=== PATIENT | female | born 1945 | race Caucasian/White ===

== ENCOUNTER 2016-11-12 07:39 | Day surgery (SDC) | payer BC, OTHER ==
[2016-11-12 08:31] VITALS: BMI 28.3
[2016-11-12] MEDS ORDERED: PROPOFOL 20 ML ONE ×3 (09:06)
[2016-11-12] MEDS ORDERED: LIDOCAINE HCL/PF 2% SDV 5ML VIAL ONE (09:06)
[2016-11-12 09:33] VITALS: TEMP 97.5
[2016-11-12 10:27] VITALS: BP 133/68; PULSE 56
--- NOTE | 2016-11-15 11:26 | PATH ---
Surgical Pathology Report Patient Name: DANIEL PACHECO [facility]. Rec. #: [id number] /Age/Gender: 1945 (Age: 71) / F Account: [id number] Location: U-ENDOSCOPY Taken: 11/12/2016 Received: 11/12/2016 Reported: 11/15/2016 Physicians: Shelly Pabon M.D. Specimen(s) Received A: BX CECUM B: BX ILEUM Clinical History History of microscopic colitis, abdominal pain, change in bowel habits Normal colon, history of microscopic colitis Final Diagnosis A. COLON, CECUM, BIOPSY: COLONIC MUCOSA WITH INCREASED LAMINA PROPRIA LYMPHOPLASMACYTIC INFILTRATE AND INCREASED INTRAEPITHELIAL LYMPHOCYTES (SEE COMMENT). NO EVIDENCE OF ARCHITECTURAL DISTORTION, GRANULOMATA OR DYSPLASIA. B. ILEUM, BIOPSY: ILEAL MUCOSA WITH INCREASED INTRAEPITHELIAL LYMPHOCYTES (SEE COMMENT). NO EVIDENCE OF GRANULOMATA OR DYSPLASIA. Comment: History of microscopic colitis is noted. The histologic findings are compatible with lymphocytic colitis in proper clinical settings. Electronically Signed José Elise M.D. Gross Description A. Received in formalin, labeled "biopsy cecum" are 4 kuhn, irregular portions of soft tissue averaging 0.4 cm in greatest dimension. The specimens are submitted in toto in one cassette. B. Received in formalin, labeled "biopsy ileum" is a kuhn, irregular portion of soft tissue measuring 0.7 cm in greatest dimension. The specimen is submitted in toto in one cassette. 11/12/201611/12/2016
== END 2016-11-12 10:27 | disposition home or self-care (01) ==
LOC: JASU-ENDO 07:39
PROVIDERS: ATTEND Internal Medicine Gastroenterology
PROC: 0DBB8ZX Excision of Ileum, Via Natural or Artificial Opening Endoscopic, Diagnostic (ICD-10-PCS; 2016-11-12)
PROC: 0DBH8ZX Excision of Cecum, Via Natural or Artificial Opening Endoscopic, Diagnostic (ICD-10-PCS; principal; 2016-11-12 09:00)
DX: Z12.11 Encounter for screening for malignant neoplasm of colon (principal); D17.5 Benign lipomatous neoplasm of intra-abdominal organs; K63.89 Other specified diseases of intestine
CPT/HCPCS: 88305-TC

== ENCOUNTER 2017-11-11 04:56 | Day surgery (SDC) | payer OTHER ==
[2017-11-10 12:07] VITALS: BMI 27.4
[2017-11-11] MEDS ORDERED: PROPOFOL 20 ML ONE (12:40)
[2017-11-11] MEDS ORDERED: MIDAZOLAM HCL 2 MG/2 ML SINGLE DOSE VIAL ONE (12:40)
[2017-11-11] MEDS ORDERED: ONDANSETRON 4 MG/2 ML VIAL IVPUSH PRN (13:22)
[2017-11-11] MEDS ORDERED: oxyCODONE HCL 5 MG TABLET PO PRN (13:22)
[2017-11-11] MEDS ORDERED: DEXAMETHASONE SOD PHOSPHATE 4 MG/1 ML VIAL ONE (13:22)
[2017-11-11] MEDS ORDERED: LACTATED RINGERS SOLUTION 1,000 ML IV SCH (13:30)
[2017-11-11] MEDS ORDERED: ceFAZolin SODIUM 1 GM VIAL IVPB ONE (13:31)
[2017-11-11] MEDS ORDERED: ACETAMINOPHEN 325 MG TABLET (FP) ONE ×2 (16:01→16:03)
[2017-11-11] MEDS ORDERED: ACETAMINOPHEN 325 MG TABLET (FP) PO ONE (16:10)
[2017-11-11] MEDS ORDERED: ACETAMINOPHEN 325 MG TABLET (FP) PO PRN (16:24)
--- NOTE | 2017-11-11 16:28 | OP ---
DATE OF OPERATION: 11/11/2017 PREOPERATIVE DIAGNOSIS: Right breast intraductal papilloma. POSTOPERATIVE DIAGNOSIS: Right breast intraductal papilloma. PROCEDURE: Right breast wire-localized excision of intraductal papilloma. SURGEON: Kaila Navas MD ANESTHESIA: General. ESTIMATED BLOOD LOSS: Minimal. COMPLICATIONS: None. This was a sterile procedure. INDICATIONS: Patient had a screening mammogram and ultrasound that noted a density in the outer right breast, 9 cm from the nipple. A needle biopsy of this revealed an intraductal papilloma. My recommendation was of excision. The procedure was discussed with all the questions answered. PROCEDURE IN DETAIL: Patient was brought to [facility] in [place], taken to Breast Imaging where wire was used to localize the mass in the right breast 9 to 10 o'clock location, 9 cm from the nipple under ultrasound guidance by the radiologist. She was brought up to the operating room, and after induction of general anesthesia and IV antibiotics, the right breast was prepped and draped in the usual sterile fashion. The area in the outer right breast was anesthetized with 1% lidocaine without epinephrine. A radial incision was made in the right 9 o'clock location. A wire was used as a guide to get down to the area of interest. This was excised en bloc and sent as excision of right breast mass to Pathology for permanent section. Hemostasis assured with electrocautery. The parenchyma was approximated with interrupted 2-0 Vicryl, skin approximated with interrupted 3-0 Vicryl and running 4-0 Biosyn. A sterile dressing of a Tegaderm and 4 x 4's applied. She tolerated the procedure well, was extubated on the operating room table, and taken to Recovery in good condition. Viridiana [id number]
[2017-11-11 16:54] VITALS: TEMP 98
[2017-11-11 17:08] VITALS: BP 137/65; PULSE 78
--- NOTE | 2017-11-16 17:17 | PATH ---
Surgical Pathology Report Patient Name: DANIEL PACHECO [facility]. Rec. #: [id number] /Age/Gender: 1945 (Age: 72) / F Account: [id number] Location: [facility] Taken: 11/11/2017 Received: 11/14/2017 Reported: 11/16/2017 Physicians: Kaila Navas M.D. Specimen(s) Received RIGHT BREAST EXCISION OF MASS Clinical History Right breast intraductal papilloma Core BX-papilloma Final Diagnosis BREAST, RIGHT, EXCISION: INTRADUCTAL PAPILLOMA WITH ASSOCIATED FLORID USUAL DUCTAL HYPERPLASIA. ATYPICAL AND FLORID USUAL DUCTAL HYPERPLASIA IN A BACKGROUND OF PROLIFERATIVE FIBROCYSTIC CHANGES INCLUDING STROMAL FIBROSIS, MICROCYSTS, APOCRINE METAPLASIA, COLUMNAR CELL CHANGES, AND MICROCALCIFICATIONS. Electronically Signed Saray Sigala M.D. Gross Description Received in formalin labeled "right breast excision of mass" is a 35 g yellow lobulated fatty soft tissue measuring 7 x 6 x 1.5 cm. A needle localizing wire is identified. The specimen is unoriented. The entire outer surface is inked in blue. The specimen is serially sectioned. Cut section shows a firm fibrous lesion with focal hemorrhage measuring 2.5 x 1.3 x 0.7 cm. The entire specimen is submitted in 15 cassettes as follows: 1-8: Lesion, 9-15: remainder of the specimen. Time in Formalin: Not provided. NITO/11/14/2017 magui/11/14/2017
== END 2017-11-11 16:40 | disposition home or self-care (01) ==
LOC: JASU-SURG 04:56
PROVIDERS: ATTEND Surgery
PROC: 0HBT0ZX Excision of Right Breast, Open Approach, Diagnostic (ICD-10-PCS; principal; 2017-11-11 12:45)
DX: D24.1 Benign neoplasm of right breast (principal)
CPT/HCPCS: 19281; 88307-TC; 94760

== ENCOUNTER 2023-03-25 04:42 | Day surgery (SDC) | payer OTHER ==
[2023-03-23 09:49] VITALS: BMI 28.0
[2023-03-25 08:39] VITALS: TEMP 97.8
[2023-03-25 09:18] VITALS: BP 124/49; PULSE 88; RESP 15
== END 2023-03-25 09:25 | disposition home or self-care (01) ==
LOC: JASU-ENDO 04:42
PROVIDERS: ATTEND Internal Medicine Gastroenterology
PROC: 0DBL8ZX Excision of Transverse Colon, Via Natural or Artificial Opening Endoscopic, Diagnostic (ICD-10-PCS; 2023-03-25)
PROC: 0DBN8ZX Excision of Sigmoid Colon, Via Natural or Artificial Opening Endoscopic, Diagnostic (ICD-10-PCS; 2023-03-25)
PROC: 0DBP8ZX Excision of Rectum, Via Natural or Artificial Opening Endoscopic, Diagnostic (ICD-10-PCS; 2023-03-25)
PROC: 0DBB8ZX Excision of Ileum, Via Natural or Artificial Opening Endoscopic, Diagnostic (ICD-10-PCS; 2023-03-25)
PROC: 0DBH8ZX Excision of Cecum, Via Natural or Artificial Opening Endoscopic, Diagnostic (ICD-10-PCS; principal; 2023-03-25 08:00)
DX: Z12.11 Encounter for screening for malignant neoplasm of colon (principal); K64.8 Other hemorrhoids; K63.89 Other specified diseases of intestine
CPT/HCPCS: 88305-TC

== ENCOUNTER 2024-04-02 04:34 | Day surgery (SDC) | payer OTHER ==
[2024-03-26 14:56] VITALS: BMI 27.6
[2024-04-02 08:23] VITALS: TEMP 97.9
[2024-04-02 08:54] VITALS: BP 109/92; PULSE 62; RESP 18
== END 2024-04-02 09:05 | disposition home or self-care (01) ==
LOC: JASU-ENDO 04:34
PROVIDERS: ATTEND Internal Medicine Gastroenterology
PROC: 0DB78ZX Excision of Stomach, Pylorus, Via Natural or Artificial Opening Endoscopic, Diagnostic (ICD-10-PCS; 2024-04-02)
PROC: 0DB68ZX Excision of Stomach, Via Natural or Artificial Opening Endoscopic, Diagnostic (ICD-10-PCS; 2024-04-02)
PROC: 0DB28ZX Excision of Middle Esophagus, Via Natural or Artificial Opening Endoscopic, Diagnostic (ICD-10-PCS; 2024-04-02)
PROC: 0DB38ZX Excision of Lower Esophagus, Via Natural or Artificial Opening Endoscopic, Diagnostic (ICD-10-PCS; 2024-04-02)
PROC: 0DB98ZX Excision of Duodenum, Via Natural or Artificial Opening Endoscopic, Diagnostic (ICD-10-PCS; principal; 2024-04-02 08:00)
DX: K21.9 Gastro-esophageal reflux disease without esophagitis (principal); K29.50 Unspecified chronic gastritis without bleeding
CPT/HCPCS: 88305-TC; 88342-TC